=== PATIENT | female | born 1975 | race Caucasian/White ===

== ENCOUNTER 2019-08-04 11:48 | Emergency (ER) | payer BC ==
[2019-08-04] MEDS ORDERED: Sodium Chloride 0.9% 10 ML Syringe FLUSH PRN (12:37)
[2019-08-04] MEDS ORDERED: Sodium Chloride 0.9% 1,000 ML IV SCH (12:45)
--- NOTE | 2019-08-04 14:27 | EDM.PDOC ---
ED HPI GENERAL MEDICAL PROBLEM - General Chief Complaint: Gastrointestinal Problem Stated Complaint: UNABLE TO KEEP FOOD DOWN Time Seen by Provider: 08/04/19 12:13 Source of Information: Reports: Patient History Limitations: Reports: No Limitations - History of Present Illness INITIAL COMMENTS - FREE TEXT/NARRATIVE: Alert 44 year old female whom has a gastric sleeve placed by Dr Sanderson 10 years ago. Patient has had intermittent difficulty swallowing intermittently for the last 6 or more months. Patient was referred to GI for EGD in May. Patient had an EGD completed noting esophageal inflammation with concern that the lap band migrated. Patient was recommended to start omeprazole 30mg daily which patient has been doing but taking more than the recommended dose to control her symptoms Patient was able to eat soup yesterday and drink fluids. Patient went out to eat yesterday and was unable to swallow solid foods. Patient has been sustaining on soup and liquids. Patient was unable to drink water this am therefore presents to ER for evaluation. Patient is able to swallow her own saliva. Patient has substernal chest discomfort with swallow and feels fullness in the mid chest. Patient denies vomiting but has intermittent nausea. Patient denies diarrhea or constipation concerns. Patient denies fever , chills, sweats or any additional systemic symptoms - Related Data Allergies Allergy/AdvReac Type Severity Reaction Status Date / Time No Known Allergies Allergy Verified 08/04/19 12:26 Home Meds: Home Meds Escitalopram [Lexapro] 10 mg PO DAILY 08/04/19 [History] Omeprazole 20 mg PO DAILY 08/04/19 [History] Past Medical History HEENT History: Reports: Impaired Vision DIETETIC INTERN History: Reports: Polycystic Ovaries - Infectious Disease History Infectious Disease History: Reports: Chicken Pox - Past Surgical History GI Surgical History: Reports: Bariatric Procedure, Cholecystectomy Female Surgical History: Reports: Hysterectomy Social & Family History - Tobacco Use Smoking Status *Q: Never Smoker - Caffeine Use Caffeine Use: Reports: Tea - Recreational Drug Use Recreational Drug Use: No ED ROS GENERAL - Review of Systems Review Of Systems: ROS reveals no pertinent complaints other than HPI. ED EXAM, GI/ABD - Physical Exam Exam: See Below Exam Limited By: No Limitations General Appearance: Alert, WD/WN, Mild Distress Eyes: Bilateral: Normal Appearance, EOMI Ears: Normal External Exam, Normal Canal, Hearing Grossly Normal Nose: Normal Inspection, Normal Mucosa Throat/Mouth: Normal Inspection, Normal Lips, Normal Teeth, Normal Gums, Normal Oropharynx, Normal Voice, No Airway Compromise Head: Normocephalic Neck: Normal Inspection, Supple, Full Range of Motion Respiratory/Chest: No Respiratory Distress, Lungs Clear, Normal Breath Sounds, No Accessory Muscle Use, Other (mild to moderate discomfort under sterum and level of mid esophagus ) Cardiovascular: Normal Peripheral Pulses, Regular Rate, Rhythm, No Edema GI/Abdominal Exam: Normal Bowel Sounds, Soft, No Organomegaly, No Distention, No Abnormal Bruit, No Mass, Tender (mild epigastric discomfort). No: Distended , Guarding, Rigid, Rebound Extremities: Normal Inspection, Normal Range of Motion, Non-Tender, Normal Capillary Refill, No Pedal Edema Neurological: Alert, Oriented, CN II-XII Intact, Normal Cognition, Normal Gait, Normal Reflexes, No Motor/Sensory Deficits Psychiatric: Normal Affect, Normal Mood, Anxious Skin Exam: Warm, Dry, Intact, Normal Color, No Rash Course - Vital Signs Last Recorded V/S: Last Vital Signs Temp Pulse 85 08/04/19 12:20 Resp 13 08/04/19 12:20 BP 155/79 H 08/04/19 12:20 Pulse Ox 98 08/04/19 12:20 - Orders/Labs/Meds Orders: Active Orders 24 hr Category Date Time Status Cardiac Monitoring [RC] .As Directed Care 08/04/19 12:37 Active Peripheral IV Care [RC] . DIRECTED Care 08/04/19 12:37 Active UA W/MICROSCOPIC [URIN] Stat Lab 08/04/19 13:16 Ordered Sodium Chloride 0.9% [Normal Saline] 1,000 ml Med 08/04/19 12:45 Active IV ASDIRECTED Sodium Chloride 0.9% [Saline Flush] Med 08/04/19 12:37 Active 10 ml FLUSH ASDIRECTED PRN Peripheral IV Insertion Adult [OM.PC] Urgent Oth 08/04/19 12:34 Ordered Medication Orders Sodium Chloride (Normal Saline) 1,000 mls @ 500 mls/hr IV ASDIRECTED EDMUND Last Admin: 08/04/19 13:14 Dose: 500 mls/hr Sodium Chloride (Saline Flush) 10 ml FLUSH ASDIRECTED PRN PRN Reason: Keep Vein Open Last Admin: 08/04/19 13:15 Dose: 10 ml Labs: Laboratory Tests 08/04/19 08/04/19 08/04/19 Range/Units 12:49 12:49 12:49 WBC 6.7 (4.5-11.0) K/uL RBC 4.60 (3.30-5.50) M/uL Hgb 14.0 (12.0-15.0) g/dL Hct 41.7 (36.0-48.0) % MCV 91 (80-98) fL MCH 30 (27-31) pg MCHC 34 (32-36) % Plt Count 286 (150-400) K/uL Neut % (Auto) 57 (36-66) % Lymph % (Auto) 33 (24-44) % [place] % (Auto) 7 H (2-6) % Eos % (Auto) 2 (2-4) % Baso % (Auto) 1 (0-1) % Sodium 139 L (140-148) mmol/L Potassium 4.2 (3.6-5.2) mmol/L Chloride 104 (100-108) mmol/L Carbon Dioxide 27 (21-32) mmol/L Anion Gap 12.2 (5.0-14.0) mmol/L BUN 7 (7-18) mg/dL Creatinine 0.9 (0.6-1.0) mg/dL Est Cr Clr Drug Dosing 81.30 mL/min Estimated GFR (MDRD) > 60 (>60) Glucose 95 (74-106) mg/dL Calcium 8.9 (8.5-10.1) mg/dL Magnesium 2.1 (1.8-2.4) mg/dL Total Bilirubin 0.6 (0.2-1.0) mg/dL Direct Bilirubin 0.10 (0.0-0.2) mg/dL Indirect Bilirubin 0.50 AST 14 L (15-37) U/L ALT 19 (12-78) U/L Alkaline Phosphatase 63 (46-116) U/L Total Protein 7.4 (6.4-8.2) g/dL Albumin 3.8 (3.4-5.0) g/dL Globulin 3.6 H (2.3-3.5) g/dL Albumin/Globulin Ratio 1.1 L (1.2-2.2) Lipase 113 (73-393) U/L Meds: Medications Generic Name Dose Route Start Last Admin Trade Name Freq PRN Reason Stop Dose Admin Sodium Chloride 1,000 mls @ 500 mls/hr 08/04/19 12:45 08/04/19 13:14 Normal Saline IV 500 mls/hr ASDIRECTED EDMUND Administration Sodium Chloride 10 ml 08/04/19 12:37 08/04/19 13:15 Saline Flush FLUSH 10 ml ASDIRECTED PRN Administration Keep Vein Open Discontinued Medications Generic Name Dose Route Start Last Admin Trade Name Freq PRN Reason Stop Dose Admin Ondansetron HCl 4 mg 08/04/19 14:35 Zofran IVPUSH 08/04/19 14:36 ONETIME ONE - Re-Assessments/Exams Free Text/Narrative Re-Assessment/Exam: PO fluid offered and 1 liter of NS given. 08/04/19 14:15 Spoke to reservations specialist General surgery regarding presentation and complaint. Surgeon recommended NPO after midnight today. Contact Dr Sanderson's office at 8am for possible repeat EGD in am (if Dr sanderson is available). Staging of Lap band will need to be completed and she will likely need to under go different gastric bypass procedure pending insurance approval and Dr Sanderson's discretion. 08/04/19 14:27 Departure - Departure Time of Disposition: 14:39 Disposition: Home, Self-Care 01 Clinical Impression: Dysphagia - Discharge Information Instructions: Dehydration, Adult, [id number], Aspiration Precautions, Adult, Heartburn, Upper Endoscopy Referrals: PCP,None [Primary Care Provider] - Forms: ED Department Discharge Additional Instructions: 1. Zofran 4mg ODT every 6 hour as needed for nausea and vomiting due to esophageal irritation and possible stricture due to gastric lap band/sleeve. 2. call center support representative Surgeon recommended: NPO after midnight today. Contact Dr Sanderson's office at 8am for possible repeat EGD in am (if Dr sanderson is available). 3. Staging of Lap band will need to be completed and consultation regarding removal vs alternate gastric bypass procedure pending insurance approval and Dr Sanderson's discretion. 4. Return to ER if fever, vomiting blood, lightheadedness dizziness or weakness. - My Orders Last 24 Hours: My Active Orders 08/04/19 12:34 Peripheral IV Insertion Adult [OM.PC] Urgent 08/04/19 12:37 Cardiac Monitoring [RC] .As Directed Peripheral IV Care [RC] . DIRECTED Sodium Chloride 0.9% [Saline Flush] 10 ml FLUSH ASDIRECTED PRN 08/04/19 12:45 Sodium Chloride 0.9% [Normal Saline] 1,000 ml IV ASDIRECTED 08/04/19 13:16 UA W/MICROSCOPIC [URIN] Stat - Assessment/Plan Last 24 Hours: My Active Orders 08/04/19 12:34 Peripheral IV Insertion Adult [OM.PC] Urgent 08/04/19 12:37 Cardiac Monitoring [RC] .As Directed Peripheral IV Care [RC] . DIRECTED Sodium Chloride 0.9% [Saline Flush] 10 ml FLUSH ASDIRECTED PRN 08/04/19 12:45 Sodium Chloride 0.9% [Normal Saline] 1,000 ml IV ASDIRECTED 08/04/19 13:16 UA W/MICROSCOPIC [URIN] Stat
[2019-08-04] MEDS ORDERED: Ondansetron 4 MG/2 ML SDV IVPUSH ONE (14:35)
== END 2019-08-04 14:52 | disposition home or self-care (01) ==
LOC: JP.ED 11:48
DX: R13.10 Dysphagia, unspecified (principal); Z90.49 Acquired absence of other specified parts of digestive tract; Z90.710 Acquired absence of both cervix and uterus; Z79.899 Other long term (current) drug therapy
CPT/HCPCS: 36415; 80048; 80076; 83690; 83735; 85025; 96361; 96374; 99284; J2405; J7030

== ENCOUNTER 2019-08-05 13:30 | Day surgery (SDC) | payer BC ==
[2019-08-05] MEDS ORDERED: Meropenem 500 MG SDV ONE (13:44)
[2019-08-05] MEDS ORDERED: Bupivacaine 0.5%/EPINEPHrine 1:200,000 50 ML MDV ONE (13:44)
[2019-08-05] MEDS ORDERED: Lactated Ringers 750 ML IV SCH (13:45)
[2019-08-05] MEDS ORDERED: cefOXitin 2 GM in Sodium Chloride 0.9% 50 ML IV ONE (13:45)
[2019-08-05] MEDS ORDERED: Ketamine 50 MG in Sodium Chloride 0.9% 49.5 ML IV SCH (14:00)
[2019-08-05] MEDS ORDERED: Lidocaine 0.4%/D5W 2 GM/500 ML BAG IV SCH (14:00)
[2019-08-05] MEDS ORDERED: Lidocaine 2% 100 MG/5 ML Syringe IVPUSH SCH (14:00)
[2019-08-05] MEDS ORDERED: Ketamine 500 MG/5 ML MDV IV SCH (14:00)
[2019-08-05] MEDS ORDERED: Scopolamine 1.5 MG Transdermal Patch TOP ONE (14:05)
[2019-08-05] MEDS ORDERED: fentaNYL 250 MCG/5 ML SDV ONE (14:08)
[2019-08-05] MEDS ORDERED: Succinylcholine 200 MG/10 ML MDV ONE (14:09)
[2019-08-05] MEDS ORDERED: Rocuronium 50 MG/5 ML Vial ONE (14:09)
[2019-08-05] MEDS ORDERED: Ondansetron 4 MG/2 ML SDV ONE (14:09)
[2019-08-05] MEDS ORDERED: Neostigmine Methylsulfate 1 MG/ML 5 ML Syringe ONE (14:09)
[2019-08-05] MEDS ORDERED: Propofol 200 MG/20 ML SDV ONE (14:09)
[2019-08-05] MEDS ORDERED: Glycopyrrolate 0.2 MG/ML 5 ML MDV ONE (14:09)
[2019-08-05] MEDS ORDERED: Dexamethasone 4 MG/ML SDV ONE (14:09)
[2019-08-05] MEDS ORDERED: Ondansetron 4 MG/2 ML SDV IVPUSH ONE (15:47)
[2019-08-05] MEDS ORDERED: Metoclopramide 10 MG/2 ML SDV IVPUSH ONE (16:07)
[2019-08-05] MEDS ORDERED: diphenhydrAMINE 50 MG/ML SDV IVPUSH PRN (16:45)
[2019-08-05] MEDS ORDERED: Labetalol 20 MG/4 ML Syringe IVPUSH PRN (16:45)
[2019-08-05] MEDS ORDERED: Metoclopramide 10 MG/2 ML SDV IVPUSH PRN (16:45)
[2019-08-05] MEDS ORDERED: hydrOXYzine HCl 100 MG/2 ML SDV IM PRN (16:45)
[2019-08-05] MEDS ORDERED: Ondansetron 4 MG/2 ML SDV IVPUSH PRN (16:45)
[2019-08-05] MEDS ORDERED: HYDROmorphone 1 MG/ML Syringe IV PRN (16:45)
[2019-08-05] MEDS ORDERED: Dextrose 5%-Lactated Ringers 1,000 ML IV SCH ×2 (16:45→22:15)
[2019-08-05] MEDS ORDERED: HYDROmorphone 0.5 MG/0.5 ML Syringe IVPUSH PRN (16:45)
[2019-08-05] MEDS ORDERED: HYDROmorphone 2 MG Tab PO PRN (16:50)
[2019-08-05] MEDS: Acetaminophen 325 MG Tab PO SCH ×2 (17:17→23:18)
[2019-08-05] MEDS ORDERED: MVI, Adult with Vitamin K 10 ML, Thiamine 200 MG, Chromium/Copper/Mang/Selen/Zn 1 ML in... IV SCH ×4 (18:00)
[2019-08-05] MEDS ORDERED: Pantoprazole 40 MG Vial IVPUSH SCH (18:00)
--- NOTE | 2019-08-05 19:23 | OR ---
DATE OF PROCEDURE: 08/05/2019 SURGEON: Lyle Ramirez MD PREOPERATIVE DIAGNOSIS: Severe dysphagia, status post laparoscopic adjustable gastric band placement. POSTOPERATIVE DIAGNOSES: 1. Severe dysphagia, status post laparoscopic adjustable gastric band placement secondary to gastritis at pouch and contained erosion of gastric band. 2. Mild antral gastritis. OPERATIVE PROCEDURES: 1. Esophagogastroduodenoscopy with antral biopsies for CLOtest (97811). 2. Diagnostic laparoscopy with. a. Removal of laparoscopic adjustable gastric band system (31035). b. Closure of contained gastric erosion overlying the band (10316). ANESTHESIA: General. MACHINE SET UP OPERATOR: Domonique Resendiz PA-C. INDICATIONS FOR PROCEDURE: This is a 44-year-old female status post laparoscopic adjustable gastric band placement in 2007. Over the past several months, the patient has had increasing problems with dysphagia. She had an upper endoscopy done by Dr. Larkin in [place], in May, who recommended that she be seen by us at the time, with concern that the band might have had some migration or slippage. She had been on omeprazole since that time. Over the last several days, she has had increasing dysphagia and presents now with essentially inability to keep much in the way of fluids down. All the fluid had been removed from the band at that point. With persistent symptoms, the patient underwent a CT scan of her abdomen. This did not show any obvious slippage, but there appeared to be relatively little in the way of lumen always present at that point of band imprint. At that point, the decision was made to proceed with an upper GI endoscopy for initial evaluation and if this appeared to be problematic, then proceed with diagnostic laparoscopy and removal of the band system. The potential risks of the procedure including bleeding; infection; leaks from any GI tract, closures might be required; possible persistence of dysphagia postoperatively were all reviewed, and the patient wishes to proceed. DETAILS OF PROCEDURE: The patient was taken to the operating room and placed in a supine position. After general endotracheal anesthesia was induced, initially the upper GI endoscope was passed orally through the length of the esophagus and into the pouch above the imprint of the gastric band. That area was quite dilated and very reddened and edematous. The scope was able to be passed through the imprint of the band, but was fairly snugged due to the amount of edema present at the band site imprint. Remainder of the stomach showed some patchy antral gastritis. Pyloric channel and proximal duodenum were unremarkable. On retroflexion within the stomach, the band did appear to have probably an area of near complete erosion through the wall of the stomach on the left side of the band imprint. At that point, the gastroscope was withdrawn and attention was taken to removal of the band system. The abdomen had been prepped and draped. 15 cm inferior and 5 cm left of the xiphoid process, a transverse incision was made. The peritoneal cavity was entered under direct vision with an Optiview trocar. The peritoneal cavity was inflated to 15 mmHg pressure with CO2. Laparoscope was reinserted. No underlying trocar insertion site injuries were seen. Following this, bilateral transversus abdominis plane blocks were placed and 5 additional trocars were placed across the upper and mid abdomen. Initially, the liver was retracted anteriorly and some of the fibrotic scar around the band was then cauterized. As one approached the left side of the band, it appeared to have eroded well into the wall of the stomach and was covered with some scar overlying this, which at that point . The band was removed from any attachments along the point where the band was locked together, and this allowed division of the band and removal of the band from the tunnel around the gastric antrum. The port tubing had been cut at 2 points, one on the site of the port where the junction was and then adjacent to the band itself, and all of those components were then removed from the field. The area of erosion of the band on the left side of the stomach at this point was pulled up in terms of the scar overlying this being retracted upward and a AILEEN purple load was then used to staple the stomach back into the mucosal-mucosal apposition. After elevating those areas with a total of 3 clamps and that staple line was then fired. This was then reinforced also with some 3-0 Vicryl seromuscular stitch and that closure appeared to be satisfactory at this point. This was in a location where the stomach had been rolled up over the band to help fix it in position and was, at this point, somewhat outside of the main flow of the gastric contents. So, I think we can probably begin feeding the patient liquid diet. We will keep her on a liquid diet for roughly 5 days postoperatively. At this point, no further problems were noted. The trocars were then sequentially removed, and the fascia at the 12 and 15 mm trocar sites was closed with 0 Vicryl stitch, and the skin with 4-0 Vicryl skin stitch. Attention was taken to the port removal. The incision over the port was then extended as part of this incision was used for one of the trocar sites. This allowed dissection down around the band, which was dissected free from the surrounding soft tissues and once this was freed up, band and remaining port tubing were removed from the field. This incision was then closed with 3 layers of 3-0 Vicryl stitch deep and also with 4-0 Vicryl skin stitch. The trocar sites and band removal site were anesthetized with 0.5% Marcaine and dressing was applied. The patient was taken to the recovery room in satisfactory condition. Physician wet process miller head assistant, Domonique Resendiz, played an essential role in assisting in this case, helping to position the patient, retract structures as needed, as well as suturing and cutting sutures when indicated. Her presence improved patient safety and decreased the operative time. Lyle Ramirez MD /[id number]
[2019-08-05] MEDS: cefOXitin 2 GM in Sodium Chloride 0.9% 50 ML IV SCH (19:49)
[2019-08-06] MEDS: cefOXitin 2 GM in Sodium Chloride 0.9% 50 ML IV SCH ×2 (01:45→07:59)
[2019-08-06] MEDS ORDERED: Iopamidol 612 MG/ML 50 ML SDV PO ONE (02:07)
--- NOTE | 2019-08-06 04:18 | CRLCR ---
Indication: Evaluate Christen-en-Y gastric bypass Technique: KUB 2 view Comparison: None Findings/Impression: : Two views of the abdomen obtained after administration of 50 cc Isovue 300. Oral contrast is seen within the esophagus, gastric pouch, and proximal small bowel. No evidence for extravasation of oral contrast. Nonspecific bowel gas pattern. Surgical clips noted in the right upper quadrant. Dictated by Marilee Partida MD @ Aug 06 2019 4:15AM Signed by Dr. Marilee Partida @ Aug 06 2019 4:16AM
[2019-08-06] MEDS: Acetaminophen 325 MG Tab PO SCH (05:37)
[2019-08-06] MEDS ORDERED: Heparin Sodium 5,000 Units/ML Vial SUBCUT SCH (08:00)
[2019-08-06] MEDS ORDERED: Escitalopram 10 MG Tab PO SCH (09:00)
[2019-08-06] MEDS ORDERED: FLU Vacc QS2019-20(6MOS+)/PF 60 MCG/0.5 ML SYRINGE IM ONE (10:00)
--- NOTE | 2019-08-06 11:16 | DISCH ---
ADMISSION DIAGNOSES: Intolerance to laparoscopic adjustable gastric band, heartburn, depression. DISCHARGE DIAGNOSIS: 1. Esophagogastroduodenoscopy with antral biopsies for CLOtest. 2. Diagnostic laparoscopy with: a. Removal of laparoscopic adjustable band system. b. Closure of contained gastric erosion overlying the gastric band for severe dysphagia, status post laparoscopic adjustable gastric band placement secondary to gastritis at pouch and contained erosion of gastric band. 3. Mild antral gastritis. HISTORY: Kavya Manzo is a 44-year-old female status post laparoscopic adjustable band placement in 2007. Over the past several months, she has had increasing problems with dysphagia. She had an upper endoscopy with Dr. Alexander in [place], who recommended that she be seen at that time because there might be some migration or slippage. She has been on omeprazole and over the last several days has increasing dysphagia and presents now essentially with inability to keep liquids down. All the fluid was removed from the band, and she had persistent symptoms. A CT scan was done. After preoperative evaluation, discussion of possible risks and possible complications, she wished to proceed with surgical procedure. HOSPITAL COURSE: Kavya had her surgery on 08/05/2019. She had no operative complications. On postoperative day #1, her pain was well managed, her activity was good, vital signs were stable, and she was able to be discharged to home. PHYSICAL EXAMINATION: GENERAL: Kavya Manzo is a 44-year-old female. Height is 5 feet 8 inches, weight is 236 pounds, BMI is 35.9. VITAL SIGNS: TPR is 95.9, 66, 18. Blood pressure 102/78. HEENT: Negative. NECK: Supple. HEART: Regular rate and rhythm. LUNGS: Clear. ABDOMEN: Dressing is dry and intact. Abdominal binder is on. EXTREMITIES: Without peripheral edema. DISPOSITION: Discharged to home. CONDITION: Stable and improving. FOLLOWUP: A followup appointment with Domonique Resendiz PA-C, on 08/15/2019 at 10 a.m. HOME MEDICATION: Omeprazole 40 mg p.o. daily #90 with 1 refill. She is to continue home medications of vitamin B12 1000 mcg sublingual and Lexapro 10 mg daily. DIET: Full liquid diet for 2 weeks. Drink 8 to 10 glasses of water a day. ACTIVITY: No lifting greater than 10 pounds for 2 weeks. Other activity: Walk [address] for 72 hours. May shower. WOUND INCISION CARE: Keep operative site clean and dry. Wear abdominal binder for 2 weeks and then as tolerated. Notify provider if any fever, increased pain, nausea, or vomiting. Use incentive spirometer 10 times every hour while awake.
[2019-08-06] MEDS ORDERED: Pantoprazole 40 MG Tab.CR PO SCH (16:00)
[2019-08-07] MEDS ORDERED: Cyanocobalamin (Vitamin B12) 1,000 MCG/ML SDV IM ONE (09:00)
== END 2019-08-06 10:30 | disposition home or self-care (01) ==
LOC: JP.SDS 13:30 → JP.MS 15:50 → JP.SDS 08-06 10:30
PROVIDERS: ATTEND Surgery
DX: K95.89 Other complications of other bariatric procedure (principal); K29.60 Other gastritis without bleeding; K91.2 Postsurgical malabsorption, not elsewhere classified; E53.9 Vitamin B deficiency, unspecified; E55.9 Vitamin D deficiency, unspecified; E66.9 Obesity, unspecified; Z79.899 Other long term (current) drug therapy
CPT/HCPCS: 43239; 43774; 43840; 74177; 74240; 87081; 88300; 90686; 94762; A9270; C9113; J0171; J0330; J0694; J1100; J1644; J2001; J2405; J2704; J2710; J2765; J2795; J3010; J3411; J3490; J7030; J7042; J7050; J7120; Q9967; J2185

== ENCOUNTER 2019-11-26 20:16 | Emergency (ER) | payer BC ==
[2019-11-26] MEDS ORDERED: Ketorolac 60 MG/2 ML SDV IM ONE (20:41)
--- NOTE | 2019-11-26 20:44 | EDM.PDOC ---
ED HPI GENERAL MEDICAL PROBLEM - General Chief Complaint: Chest Pain Stated Complaint: CHEST PAIN/SOB/BACK PAIN Time Seen by Provider: 11/26/19 20:36 Source of Information: Reports: Patient, Family, RN Notes Reviewed History Limitations: Reports: No Limitations - History of Present Illness INITIAL COMMENTS - FREE TEXT/NARRATIVE: 44-year-old female presents emergency department a complaint of chest pressure predominantly on the right side she states is been ongoing for about 5 hours worse with exertion will wax and wane highest 7 out of 10 down to 0 out of 10 no nausea no diaphoresis does feel short of breath worse with a deep breath. She has no cardiac history remote tobacco use history recently had a lap band removal 3 months prior Treatments COMMUNITY MIDWIFE: Reports: Other (see below) Other Treatments COMMUNITY MIDWIFE: none Chest Pain Score (Numeric/FACES): 2 - Related Data Allergies Allergy/AdvReac Type Severity Reaction Status Date / Time steri strips Allergy Hives Uncoded 11/26/19 20:34 Home Meds: Home Meds Escitalopram [Lexapro] 10 mg PO DAILY 08/04/19 [History] Cyanocobalamin (Vitamin B-12) [Vitamin B-12] 1,000 mcg SL DAILY 08/05/19 [ History] Past Medical History HEENT History: Reports: Impaired Vision Gastrointestinal History: Reports: GERD Genitourinary History: Reports: UTI, Recurrent RECORDS MANAGEMENT ASSOCIATE History: Reports: Polycystic Ovaries, Musculoskeletal History: Reports: Other (See Below) Other Musculoskeletal History: bilat joint pain Psychiatric History: Reports: Anxiety Endocrine/Metabolic History: Reports: Obesity/BMI 30+ Hematologic History: Reports: B12 Deficiency - Infectious Disease History Infectious Disease History: Reports: Chicken Pox - Past Surgical History HEENT Surgical History: Reports: Adenoidectomy, Tonsillectomy GI Surgical History: Reports: Bariatric Procedure, Cholecystectomy, Other (See Below) Other GI Surgeries/Procedures: Lap Band removal July 2019 Female Surgical History: Reports: Hysterectomy Social & Family History - Family History Family Medical History: Unobtainable - Tobacco Use Smoking Status *Q: Never Smoker Second Hand Smoke Exposure: No - Caffeine Use Caffeine Use: Reports: Soda - Recreational Drug Use Recreational Drug Use: No ED ROS GENERAL - Review of Systems Review Of Systems: See Below Constitutional: Reports: No Symptoms HEENT: Reports: No Symptoms Respiratory: Reports: Shortness of Breath Cardiovascular: Reports: Chest Pain GI/Abdominal: Reports: No Symptoms : Reports: No Symptoms ED EXAM, GENERAL - Physical Exam Exam: See Below Exam Limited By: No Limitations General Appearance: Alert, WD/WN, No Apparent Distress Respiratory/Chest: No Respiratory Distress, Lungs Clear, Normal Breath Sounds, No Accessory Muscle Use, Chest Non-Tender Cardiovascular: Regular Rate, Rhythm, No Murmur GI/Abdominal: Soft, Non-Tender Extremities: Normal Inspection, No Pedal Edema Course - Vital Signs Last Recorded V/S: Last Vital Signs Temp 96.7 F 11/26/19 20:23 Pulse 84 11/26/19 21:30 Resp 14 11/26/19 21:30 BP 157/90 H 11/26/19 21:30 Pulse Ox 97 11/26/19 21:30 - Orders/Labs/Meds Orders: Active Orders 24 hr Category Date Time Status Cardiac Monitoring [RC] .As Directed Care 11/26/19 20:41 Active EKG Documentation Completion [RC] ASDIRECTED Care 11/26/19 20:41 Active EKG 12 Lead [EK] Stat Ther 11/26/19 20:41 Ordered Labs: Laboratory Tests 11/26/19 11/26/19 11/26/19 Range/Units 20:46 20:46 20:46 WBC 8.0 (4.5-11.0) K/uL RBC 4.18 (3.30-5.50) M/uL Hgb 12.7 (12.0-15.0) g/dL Hct 38.5 (36.0-48.0) % MCV 92 (80-98) fL MCH 30 (27-31) pg MCHC 33 (32-36) % Plt Count 238 (150-400) K/uL Neut % (Auto) 53 (36-66) % Lymph % (Auto) 36 (24-44) % [place] % (Auto) 8 H (2-6) % Eos % (Auto) 3 (2-4) % Baso % (Auto) 1 (0-1) % D-Dimer, Quantitative 145 (0.0-400.0) ng/mL Sodium 139 L (140-148) mmol/L Potassium 3.9 (3.6-5.2) mmol/L Chloride 104 (100-108) mmol/L Carbon Dioxide 26 (21-32) mmol/L Anion Gap 12.9 (5.0-14.0) mmol/L BUN 14 D (7-18) mg/dL Creatinine 0.8 (0.6-1.0) mg/dL Est Cr Clr Drug Dosing TNP Estimated GFR (MDRD) > 60 (>60) Glucose 97 (74-106) mg/dL Calcium 8.7 (8.5-10.1) mg/dL Total Bilirubin 0.2 D (0.2-1.0) mg/dL AST 15 (15-37) U/L ALT 27 (12-78) U/L Alkaline Phosphatase 62 (46-116) U/L Troponin I < 0.017 (0.000-0.056) ng/mL Total Protein 7.2 (6.4-8.2) g/dL Albumin 3.5 (3.4-5.0) g/dL Globulin 3.7 H (2.3-3.5) g/dL Albumin/Globulin Ratio 1.0 L (1.2-2.2) Meds: Medications Discontinued Medications Generic Name Dose Route Start Last Admin Trade Name Freq PRN Reason Stop Dose Admin Ketorolac Tromethamine 60 mg 11/26/19 20:41 11/26/19 21:00 Toradol IM 11/26/19 20:42 60 mg ONETIME ONE Administration Departure - Departure Time of Disposition: 21:58 Disposition: Home, Self-Care 01 Condition: Fair Clinical Impression: Atypical chest pain Instructions: Nonspecific Chest Pain Referrals: PCP,None [Primary Care Provider] - Forms: ED Department Discharge Additional Instructions: Please call to the [facility] in the morning for an appointment time with Dr. Ramirez, call or return to the emergency department worsening of symptoms Sepsis Event Note - Evaluation Sepsis Screening Result: No Definite Risk - Focused Exam Vital Signs: Vital Signs Temp Pulse Resp BP Pulse Ox 11/26/19 21:30 84 14 157/90 H 97 11/26/19 21:04 77 14 137/77 98 11/26/19 20:23 96.7 F 88 16 168/81 H 99 Date Exam was Performed: 11/26/19 Time Exam was Performed: 21:57 - My Orders Last 24 Hours: My Active Orders 11/26/19 20:41 Cardiac Monitoring [RC] .As Directed EKG Documentation Completion [RC] ASDIRECTED EKG 12 Lead [EK] Stat - Assessment/Plan Last 24 Hours: My Active Orders 11/26/19 20:41 Cardiac Monitoring [RC] .As Directed EKG Documentation Completion [RC] ASDIRECTED EKG 12 Lead [EK] Stat Plan: Assessment Acuity = acute Site and laterality = atypical chest pain Etiology = unknown Manifestations = none Location of injury = Home Lab values = CBC, CMP, troponin, d-dimer within normal limits chest x-ray does demonstrate left axis deviation chest x-ray shows no acute process Plan She had some relief with the Toradol provided in the emergency department plan is to follow-up with Dr. Ramirez from the gastric bypass group for reevaluation in the clinic This note was dictated using [employer] voice recognition software please call with any questions on syntax or grammar.
--- NOTE | 2019-11-26 21:11 | CRLCR ---
INDICATION: Chest pain COMPARISON: None TECHNIQUE: Frontal and lateral views of the chest FINDINGS: The lungs are clear. There is no pleural effusion or pneumothorax. The cardiomediastinal silhouette is normal. The osseous structures are unremarkable. IMPRESSION: No acute intrathoracic process. Dictated by Radha Low MD @ Nov 26 2019 9:10PM Signed by Dr. Radha Low @ Nov 26 2019 9:10PM
== END 2019-11-26 22:14 | disposition home or self-care (01) ==
LOC: JP.ED 20:16
DX: R07.89 Other chest pain (principal); E66.9 Obesity, unspecified; F41.9 Anxiety disorder, unspecified; Z98.84 Bariatric surgery status; Z98.890 Other specified postprocedural states; Z90.49 Acquired absence of other specified parts of digestive tract; Z90.710 Acquired absence of both cervix and uterus; Z79.899 Other long term (current) drug therapy
CPT/HCPCS: 36415; 71046; 80053; 84484; 85025; 85379; 93005; 96372; 99285; J1885

== ENCOUNTER 2020-03-16 14:51 | Emergency (ER) | payer BC ==
--- NOTE | 2020-03-16 15:12 | EDM.PDOC ---
ED HPI GENERAL MEDICAL PROBLEM - General Chief Complaint: Cardiovascular Problem Stated Complaint: LIGHT HEADED Time Seen by Provider: 03/16/20 15:09 Source of Information: Reports: Patient History Limitations: Reports: No Limitations - History of Present Illness Onset: Today Headache Pain Score (Numeric/FACES): 3 - Related Data Allergies Allergy/AdvReac Type Severity Reaction Status Date / Time steri strips Allergy Hives Uncoded 03/16/20 15:30 Home Meds: Home Meds Cyanocobalamin (Vitamin B-12) [Vitamin B-12] 1,000 mcg SL DAILY 08/05/19 [ History] Multivitamin [Multi-Vitamin Daily] 1 each PO DAILY 02/25/20 [History] Furosemide [Lasix] 20 mg PO DAILY 03/02/20 [History] busPIRone HCl [Buspirone HCl] 7.5 mg PO DAILY 03/02/20 [History] Past Medical History HEENT History: Reports: Impaired Vision Cardiovascular History: Reports: Hypertension (On Lasix, followed by cardiology in [place]) Gastrointestinal History: Reports: GERD Genitourinary History: Reports: UTI, Recurrent [employer] History: Reports: Polycystic Ovaries, Musculoskeletal History: Reports: Other (See Below) Other Musculoskeletal History: bilat joint pain Psychiatric History: Reports: Anxiety Endocrine/Metabolic History: Reports: Obesity/BMI 30+ Hematologic History: Reports: B12 Deficiency - Infectious Disease History Infectious Disease History: Reports: Chicken Pox - Past Surgical History HEENT Surgical History: Reports: Adenoidectomy, Tonsillectomy GI Surgical History: Reports: Bariatric Procedure, Cholecystectomy, Other (See Below) Other GI Surgeries/Procedures: Lap Band removal July 2019 Female Surgical History: Reports: Hysterectomy Social & Family History - Family History Family Medical History: Unobtainable - Caffeine Use Caffeine Use: Reports: Soda ED ROS GENERAL - Review of Systems Review Of Systems: See Below Constitutional: Reports: Malaise HEENT: Reports: No Symptoms, Other (No double vision) Respiratory: Reports: No Symptoms. Denies: Shortness of Breath, Cough Cardiovascular: Reports: Other (Went on a long walk yesterday with no shortness of breath or chest pain). Denies: Chest Pain, Dyspnea on Exertion Endocrine: Reports: No Symptoms GI/Abdominal: Denies: Abdominal Pain, Nausea, Vomiting : Reports: No Symptoms Musculoskeletal: Reports: No Symptoms, Other (The patient states that she has had swelling of her lower legs and then that is why her physician placed her on Lasix) Skin: Reports: No Symptoms Neurological: Reports: Dizziness Psychiatric: Reports: No Symptoms Hematologic/Lymphatic: Reports: No Symptoms ED EXAM, GENERAL - Physical Exam Exam: See Below Exam Limited By: No Limitations General Appearance: Alert, Obese Nose: Normal Inspection Throat/Mouth: Normal Inspection Head: Atraumatic, Normocephalic Neck: Normal Inspection Respiratory/Chest: No Respiratory Distress, Lungs Clear Cardiovascular: Normal Peripheral Pulses, Regular Rate, Rhythm GI/Abdominal: Soft, Non-Tender Back Exam: Normal Inspection, Full Range of Motion Extremities: Normal Inspection, Normal Range of Motion, Other (Mild swelling of lower extremities below the knee noted but no pitting edema.) Neurological: Alert, Oriented, Normal Cognition Psychiatric: Normal Affect, Normal Mood, Anxious Skin Exam: Warm, Dry EKG INTERPRETATION EKG Date: 03/16/20 Time: 15:20 Rhythm: NSR Rate (Beats/Min): 82 [place]: Normal ST-T: Normal QT: Normal Course - Vital Signs Text/Narrative:: 1710 the patient states she feels much better. Pressure in head is gone. Systolic pressure 1 hour after receiving clonidine is 137. Patient is comfortable going home. Last Recorded V/S: Last Vital Signs Temp 36.4 C 03/16/20 15:32 Pulse 78 03/16/20 16:02 Resp 18 03/16/20 15:32 BP 170/76 H 03/16/20 16:02 Pulse Ox 99 03/16/20 16:02 Orthostatic Blood Pressure [ 178/88 Standing] Orthostatic Blood Pressure [ 163/98 Sitting] Orthostatic Blood Pressure [ 174/93 Supine] - Orders/Labs/Meds Orders: Active Orders 24 hr Category Date Time Status Communication Order [RC] ASDIRECTED Care 03/16/20 15:47 Active EKG Documentation Completion [RC] ASDIRECTED Care 03/16/20 15:10 Active Orthostatic Vital Signs [RC] ASDIRECTED Care 03/16/20 15:11 Active Blood Pressure [OM.PC] Q1HWA Oth 03/16/20 15:46 Ordered Blood Pressure [OM.PC] Q1HWA Oth 03/17/20 15:46 Ordered Blood Pressure [OM.PC] Q1HWA Oth 03/18/20 15:46 [facility] 15:46 Ordered EKG 12 Lead [EK] Stat Ther 03/16/20 15:10 Ordered Labs: Laboratory Tests 03/16/20 03/16/20 03/16/20 Range/Units 16:02 16:02 16:02 WBC 6.6 (4.5-11.0) K/uL RBC 4.30 (3.30-5.50) M/uL Hgb 13.1 (12.0-15.0) g/dL Hct 39.7 (36.0-48.0) % MCV 92 (80-98) fL MCH 31 (27-31) pg MCHC 33 (32-36) % Plt Count 236 (150-400) K/uL PT 9.7 (9.5-12.0) sec INR 0.89 (0.80-1.20) Sodium 138 L (140-148) mmol/L Potassium 3.7 (3.6-5.2) mmol/L Chloride 102 (100-108) mmol/L Carbon Dioxide 27 (21-32) mmol/L Anion Gap 12.7 (5.0-14.0) mmol/L BUN 15 (7-18) mg/dL Creatinine 0.9 (0.6-1.0) mg/dL Est Cr Clr Drug Dosing 83.36 mL/min Estimated GFR (MDRD) > 60 (>60) Glucose 97 (74-106) mg/dL Calcium 8.7 (8.5-10.1) mg/dL Total Bilirubin 0.3 (0.2-1.0) mg/dL AST 16 (15-37) U/L ALT 37 (12-78) U/L Alkaline Phosphatase 56 (46-116) U/L Troponin I (0.000-0.056) ng/mL NT-Pro-B Natriuret Pep 78 (5-125) pg/mL Total Protein 7.1 (6.4-8.2) g/dL Albumin 3.7 (3.4-5.0) g/dL Globulin 3.4 (2.3-3.5) g/dL Albumin/Globulin Ratio 1.1 L (1.2-2.2) Urine Color (YELLOW) Urine Appearance (CLEAR) Urine pH (5.0-8.0) Ur Specific [place] (1.008-1.030) Urine Protein (NEGATIVE) mg/dL Urine Glucose (UA) (NEGATIVE) mg/dL Urine Ketones (NEGATIVE) mg/dL Urine Occult Blood (NEGATIVE) Urine Nitrite (NEGATIVE) Urine Bilirubin (NEGATIVE) Urine Urobilinogen (0.2-1.0) EU/dL Ur Leukocyte Esterase (NEGATIVE) Urine RBC (0-5) Urine WBC (0-5) Ur Epithelial Cells Amorphous Sediment Urine Bacteria Urine Mucus Urine Opiates Screen (NEGATIVE) Ur Oxycodone Screen (NEGATIVE) Urine Methadone Screen (NEGATIVE) Ur Propoxyphene Screen (NEGATIVE) Ur Barbiturates Screen (NEGATIVE) Ur Tricyclics Screen (NEGATIVE) Ur Phencyclidine Scrn (NEGATIVE) Ur Amphetamine Screen (NEGATIVE) U Methamphetamines Scrn (NEGATIVE) Urine MDMA Screen (NEGATIVE) U Benzodiazepines Scrn (NEGATIVE) U Cocaine Metab Screen (NEGATIVE) U Marijuana (THC) Screen (NEGATIVE) 03/16/20 03/16/20 03/16/20 Range/Units 16:02 16:33 16:33 WBC (4.5-11.0) K/uL RBC (3.30-5.50) M/uL Hgb (12.0-15.0) g/dL Hct (36.0-48.0) % MCV (80-98) fL MCH (27-31) pg MCHC (32-36) % Plt Count (150-400) K/uL PT (9.5-12.0) sec INR (0.80-1.20) Sodium (140-148) mmol/L Potassium (3.6-5.2) mmol/L Chloride (100-108) mmol/L Carbon Dioxide (21-32) mmol/L Anion Gap (5.0-14.0) mmol/L BUN (7-18) mg/dL Creatinine (0.6-1.0) mg/dL Est Cr Clr Drug Dosing mL/min Estimated GFR (MDRD) (>60) Glucose (74-106) mg/dL Calcium (8.5-10.1) mg/dL Total Bilirubin (0.2-1.0) mg/dL AST (15-37) U/L ALT (12-78) U/L Alkaline Phosphatase (46-116) U/L Troponin I < 0.017 (0.000-0.056) ng/mL NT-Pro-B Natriuret Pep (5-125) pg/mL Total Protein (6.4-8.2) g/dL Albumin (3.4-5.0) g/dL Globulin (2.3-3.5) g/dL Albumin/Globulin Ratio (1.2-2.2) Urine Color Yellow (YELLOW) Urine Appearance Clear (CLEAR) Urine pH 6.5 (5.0-8.0) Ur Specific [place] 1.015 (1.008-1.030) Urine Protein Negative (NEGATIVE) mg/dL Urine Glucose (UA) Negative (NEGATIVE) mg/dL Urine Ketones Negative (NEGATIVE) mg/dL Urine Occult Blood Negative (NEGATIVE) Urine Nitrite Negative (NEGATIVE) Urine Bilirubin Negative (NEGATIVE) Urine Urobilinogen 0.2 (0.2-1.0) EU/dL Ur Leukocyte Esterase Negative (NEGATIVE) Urine RBC 0-5 (0-5) Urine WBC 0-5 (0-5) Ur Epithelial Cells Rare Amorphous Sediment Not seen Urine Bacteria Few Urine Mucus Not seen Urine Opiates Screen Negative (NEGATIVE) Ur Oxycodone Screen Negative (NEGATIVE) Urine Methadone Screen Negative (NEGATIVE) Ur Propoxyphene Screen Negative (NEGATIVE) Ur Barbiturates Screen Negative (NEGATIVE) Ur Tricyclics Screen Negative (NEGATIVE) Ur Phencyclidine Scrn Negative (NEGATIVE) Ur Amphetamine Screen Negative (NEGATIVE) U Methamphetamines Scrn Negative (NEGATIVE) Urine MDMA Screen Negative (NEGATIVE) U Benzodiazepines Scrn Negative (NEGATIVE) U Cocaine Metab Screen Negative (NEGATIVE) U Marijuana (THC) Screen Negative (NEGATIVE) Meds: Medications Discontinued Medications Generic Name Dose Route Start Last Admin Trade Name Freq PRN Reason Stop Dose Admin Clonidine HCl 0.1 mg 03/16/20 15:44 03/16/20 15:52 Catapres PO 03/16/20 15:45 0.1 mg ONETIME ONE Administration Departure - Departure Time of Disposition: 17:12 Disposition: Home, Self-Care 01 Clinical Impression: Hypertensive urgency Instructions: Hypertension, Adult, [id number] Referrals: Gomez Iglesias MD [Primary Care Provider] - Forms: ED Department Discharge Additional Instructions: Increase your Lasix to 40 mg daily. 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 Continue trying to do 30 minutes of aerobic exercise daily and following a no added salt diet. Sepsis Event Note - Focused Exam Vital Signs: Vital Signs Temp Pulse Resp BP BP Pulse Ox 03/16/20 16:02 78 170/76 H 99 03/16/20 15:52 178/88 H 03/16/20 15:32 36.4 C 83 18 174/93 H 96 03/16/20 15:29 36.4 C 83 18 174/93 H 96 Date Exam was Performed: 03/16/20 Time Exam was Performed: 17:11 - My Orders Last 24 Hours: My Active Orders 03/16/20 15:10 EKG Documentation Completion [RC] ASDIRECTED EKG 12 Lead [EK] Stat 03/16/20 15:11 Orthostatic Vital Signs [RC] ASDIRECTED 03/16/20 15:46 Blood Pressure [OM.PC] Q1HWA 03/16/20 15:47 Communication Order [RC] ASDIRECTED 03/17/20 15:46 Blood Pressure [OM.PC] Q1HWA 03/18/20 15:46 Blood Pressure [OM.PC] Q1HWA 03/19/20 15:46 Blood Pressure [OM.PC] Q1H - Assessment/Plan Last 24 Hours: My Active Orders 03/16/20 15:10 EKG Documentation Completion [RC] ASDIRECTED EKG 12 Lead [EK] Stat 03/16/20 15:11 Orthostatic Vital Signs [RC] ASDIRECTED 03/16/20 15:46 Blood Pressure [OM.PC] Q1HWA 03/16/20 15:47 Communication Order [RC] ASDIRECTED 03/17/20 15:46 Blood Pressure [OM.PC] Q1HWA 03/18/20 15:46 Blood Pressure [OM.PC] Q1HWA 03/19/20 15:46 Blood Pressure [OM.PC] Q1HWA
[2020-03-16] MEDS ORDERED: cloNIDine 0.1 MG Tab PO ONE (15:44)
== END 2020-03-16 17:27 | disposition home or self-care (01) ==
LOC: JP.ED 14:51
DX: I16.0 Hypertensive urgency (principal); I10 Essential (primary) hypertension; E66.9 Obesity, unspecified; Z68.41 Body mass index [BMI] 40.0-44.9, adult; Z91.048 Other nonmedicinal substance allergy status; Z79.899 Other long term (current) drug therapy
CPT/HCPCS: 36415; 80053; 80305; 81001; 83880; 84484; 85027; 85610; 93005; 99284; A9270